=== PATIENT | male | born 1935 | race Caucasian/White ===

== ENCOUNTER 2018-07-07 08:51 | Day surgery (SDC) | payer OTHER ==
[2018-07-07] MEDS ORDERED: BUPIVACAINE 0.5% 30 ML SDV ONE (08:57)
[2018-07-07] MEDS ORDERED: LR 1,000 ML IV ONE (09:15)
--- NOTE | 2018-07-07 10:21 | PDHPUP ---
History & Physical Update H&P update statement: This history and physical update is based on an assessment of the patient which was completed after admission or registration (within 24 hours), but prior to the surgery/procedure. H&P update: no change in patient's condition since H&P completed (No Changes)
[2018-07-07] MEDS ORDERED: ceFAZolin 2 GM/DEXTROSE 100 ML IV ONE (10:22)
[2018-07-07] MEDS ORDERED: fentaNYL 100 MCG/2 ML INJ ONE (10:43)
[2018-07-07] MEDS ORDERED: DEXAMETHASONE 4 MG/ML VIAL ONE ×2 (10:43)
[2018-07-07] MEDS ORDERED: PROPOFOL 200 MG/20 ML VIAL ONE ×2 (10:43→11:16)
--- NOTE | 2018-07-07 10:46 | PDANEPAE ---
ANE Past Medical History - Cardiovascular History Hx Hypertension: No Hx Arrhythmias: No Hx Chest Pain: No Hx Coronary Artery / Peripheral Vascular Disease: Yes Hx CHF / Valvular Disease: No Hx Palpitations: No - Pulmonary History Hx COPD: Yes Hx Asthma/Reactive Airway Disease: No Hx Recent Upper Respiratory Infection: No Hx Oxygen in Use at Home: No Hx Sleep Apnea: No Sleep Apnea Screening Result - Last Documented: Positive - Neurologic History Hx Cerebrovascular Accident: No Hx Seizures: No Hx Dementia: No - Endocrine History Hx Diabetes: No Obesity: no - Renal History Hx Renal Disorders: No - Liver History Hx Hepatic Disorders: No - Neurological & Psychiatric Hx Hx Neurological and Psychiatric Disorders: No - Cancer History Hx Cancer: No - Congenital Disorder History Hx Congenital Disorders: No - GI History GERD: no Hx Gastrointestinal Disorders: No - Other Health History 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 cardiac cath with stent placement 10yrs ago. right thumb repair ANE Review of Systems Review of Systems: - Exercise capacity METS (RN): 4 METS ANE Patient History - Allergies Allergies/Adverse Reactions: No Known Allergies Allergy (Verified 07/04/18 11:15) - Home Medications Home Medications: Aspirin 07/04/18 [Last Taken Unknown] Herbals/Supplements -Info Only 07/04/18 [Last Taken Unknown] Simvastatin 07/04/18 [Last Taken Unknown] - NPO status NPO Status: no food or drink >8 hours NPO Since - Liquids (Date): 07/07/18 NPO Since - Liquids (Time): 05:30 NPO Since - Solids (Date): 07/06/18 NPO Since - Solids (Time): 17:00 - Anes Hx Anes Hx: no prior problems - Smoking Hx Smoking Status: Former smoker - Family Anes Hx Family Hx Anesthesia Complications: none ANE Labs/Vital Signs - Vital Signs Blood Pressure: 110/69 Heart Rate: 86 Respiratory Rate: 16 O2 Sat (%): 90 Height: 182.88 cm Weight: 77.111 kg ANE Physical Exam - Airway Neck exam: FROM Mallampati Score: Class 3 Mouth exam: normal dental/mouth exam - Pulmonary Pulmonary: no respiratory distress, no rales or rhonchi, clear to auscultation - Cardiovascular Cardiovascular: regular rate and rhythym, no murmur, rub, or gallop - ASA Status ASA Status: III ANE Anesthesia Plan Anesthesia Plan: MAC
[2018-07-07] MEDS ORDERED: ACETAMINOPHEN 500 MG TAB PO PRN (11:36)
[2018-07-07] MEDS ORDERED: HYDROCODONE/APAP 5/325 TAB PO PRN (11:36)
[2018-07-07] MEDS ORDERED: ONDANSETRON 4 MG/2 ML VIAL IVP PRN (11:36)
[2018-07-07] MEDS ORDERED: fentaNYL 100 MCG/2 ML INJ IVP PRN (11:36)
[2018-07-07] MEDS ORDERED: PROMETHAZINE HCL 25 MG/ML INJ IVP PRN (11:36)
[2018-07-07] MEDS ORDERED: NALOXONE HCL 0.4 MG/ML INJ IVP PRN (11:36)
[2018-07-07] MEDS ORDERED: LR 500 ML IV PRN (11:36)
[2018-07-07] MEDS ORDERED: oxyCODONE IR 5 MG TAB PO PRN (11:36)
[2018-07-07] MEDS ORDERED: PHENYLEPHRINE HCL 100 MCG/ML SYR ONE (11:36)
--- NOTE | 2018-07-07 12:00 | POSTANESTH ---
Post Anesthetic Evaluation Cardiovascular Status: Normal, Stable, Similar to Pre-Op Cond Respiratory Status: Normal, Stable, Similar to Pre-op Cond. Level of Consciousness/Mental Status: Can Participate in Eval, Alert and Oriented Pain Control: Adequate, Prn Tx Ordered Nausea/Vomiting Control: Adequate, Prn Tx Ordered Complications Possibly Related to Anesthesia: None Noted
--- NOTE | 2018-07-07 12:00 | POSTOPPROG ---
Post Op Note Date of Operation: 07/07/18 Surgeon: Manish Quintero Vice President Of Compliance: none Anesthesiologist: Dr. Moe Barcenas Anesthesia: IV Sedation Pre-op Diagnosis: Dupuytrens contracture Post-op Diagnosis: Same Indication: contracture Procedure: Excision Dupuytrens palm, long and thumb right hand Findings: dupuytren's bands Inf/Abcess present in the surg proc area at time of surgery?: No Depth: Deep Incisional (Fascial) EBL: Minimal Total fluids administered: 600cc Complications: None Specimen(s): Yes. Dupuytrens tissue sent to path.
[2018-07-07 12:50] VITALS: BP 120/60
--- NOTE | 2018-07-07 12:54 | GOP ---
DATE OF OPERATION: 07/07/2018 SURGEON: Manish Quintero MD PREOPERATIVE DIAGNOSIS: Left hand palm, long, and thumb Dupuytren's. POSTOPERATIVE DIAGNOSIS: Left hand palm, long, and thumb Dupuytren's. PROCEDURE PERFORMED: Excision of Dupuytren's left palm, left long, and thumb. FINDINGS: INDICATIONS: This patient had progressive tightening of the pretendinous band to the long finger in the palm of the hand, a sizable nodule, which was now causing discomfort with gripping activities at the base of the long finger, and then Dupuytren's spiral band extending down the radial aspect of the left long finger to the mid middle phalanx level causing some early contracture of the MP and PIP sheri ints. He also had a 1st webspace band extending into the thumb IP joint area, which was starting to cause difficulty with wide abduction of the thumb. It was felt at this point that excision was a goo d option for him. DESCRIPTION OF PROCEDURE: Under local infiltration block with 0.5% plain Marcaine, the median, ulnar , and radial nerves were blocked at the level of the distal 3rd forearm and the operative areas in th e palm of the hand were infiltrated as well with 0.5% plain Marcaine. A longitudinal incision was made over the thumb web space band. Skin and subcutaneous tissue was ref lected and the band was excised completely. It extended from just distal to the MP joint back into t he pretendinous area of the index finger. That band was completely excised. Wound irrigated and the n skin closed with horizontal mattress sutures of 5-0 Prolene. Attention was turned to the palm of the hand and there 3 transverse incisions were made, 1 just proxi mal to the MP flexion crease of the palm, 1 between proximal and distal flexion creases of the palm, and 1 running parallel to the thenar crease. The skin was elevated from the underlying Dupuytren's o f thickened pretendinous tissue and that palmar fascia was excised completely down to the nodule at t he base of the long finger. The nodule was from underlying neurovascular and tendinous str uctures and that was excised completely. Then, the spiral band extending down the radial aspect of t he left long finger was exposed to an L-shaped incision transversely at the base of the middle phalan x level and then extending down the radial aspect of the left long finger. Skin flap was elevated ul narly and the spiral band was from the neurovascular bundle, which had been reflected media lly. The band also involved [place]'s ligament and the band were excised completely down to the mid middle phalanx level. Wound was irrigated profusely with body temperature saline. There was no joint contracture requiring manipulation. The skin was closed at each one of the palmar and the left long finger incisions usin g horizontal mattress sutures of 5-0 Prolene. Complete closure was possible with no tension. The wo und had been irrigated 1 last time with 0.5% plain Marcaine prior to skin closure. A bulky soft pres sure dressing was applied, followed by Bobo palmar base fiberglass splint leaving the thumb free, but immobilizing long, ring, index, and small fingers. This was held in place with an Bobo bandage. He tolerated the procedure well. There were no complications. Tourniquet deflation resulted in imme diate pinking of the digits. He was brought to the recovery area where detailed instructionswere giv en prior to discharge. A prescription for [place] and Keflex was provided. He had been given 2 g of A ncef prior to commencement of surgery. Followup arrangements in the office for about a week postop f or dressing and probable suture removal, remobilization exercises, and night extension splint to be w orn each night for 1 month. /[id number]/MODL
== END 2018-07-07 13:31 | disposition home or self-care (01) ==
LOC: FSGY 08:51 → EDSTATUS 11:00 → FSGY 13:31
PROVIDERS: ATTEND Specialist
DX: M72.0 Palmar fascial fibromatosis [Dupuytren] (principal); J44.9 Chronic obstructive pulmonary disease, unspecified; G47.30 Sleep apnea, unspecified; I25.10 Atherosclerotic heart disease of native coronary artery without angina pectoris; L40.9 Psoriasis, unspecified; Z95.5 Presence of coronary angioplasty implant and graft
CPT/HCPCS: J0690; J1100; J2370; J2704; J3010